=== PATIENT | female | born 1950 ===

== ENCOUNTER 2020-08-30 02:00 | Inpatient (IN) ==
[2020-08-30] MEDS ORDERED: NICOTINE 21 MG/24 HR PATCH TRANSDERM PRN (04:08)
[2020-08-30] MEDS ORDERED: hydrALAZINE 20 MG/1 ML VIAL IV PRN (04:08)
[2020-08-30] MEDS ORDERED: diphenhydrAMINE CAP 25 MG CAPSULE PO PRN (04:08)
[2020-08-30] MEDS ORDERED: GLUCAGON 1 MG VIAL IM PRN (04:08)
[2020-08-30] MEDS ORDERED: DEXTROSE 50% 25 GM/50 ML VIAL IV PRN (04:08)
[2020-08-30] MEDS ORDERED: ACETAMINOPHEN 325 MG TABLET PO PRN (04:08)
[2020-08-30] MEDS ORDERED: MORPHINE 4 MG/1 ML VIAL IV PRN (04:08)
[2020-08-30] MEDS ORDERED: ONDANSETRON 4 MG/2 ML VIAL IV PRN (04:08)
[2020-08-30 06:36] LABS: Basophils % 0.2 % (0.0-0.8); Hematocrit 34.6 VOL% (35.7-47.0); Hemoglobin 11.5 GM/DL (12.0-16.0); Immature Granulocytes % 0.4 %; Immature Granulocytes Absolute 0.02 #; Lymphocytes # 1.4 10*3/uL (1.4-4.0); Lymphocytes % 25.7 % (21.3-54.2); Mean Corpuscular HGB Conc 33.2 GM/DL (32-36); Mean Corpuscular Volume 89.6 FL (87-102); Mean Platelet Volume 9.8 FL (9.6-12.0); Monocytes % 7.2 % (1.7-12.7); Neutrophils % 66.5 % (38.7-73.9); Platelet Count 278 T/CUMM (130-400); Red Blood Count 3.86 MC/CUMM (3.8-5.5); Red Cell Distribution Width 13.5 % (9.3-17.3); White Blood Count 5.5 T/CUMM (4-12)
[2020-08-30 07:01] LABS: Albumin 2.9 G/DL (3.4-5.0); Bilirubin,Total 0.6 MG/DL (0.2-1.0); Calcium 8.5 MG/DL (8.5-10.1); Osmolality,Calculated 275.5 MOS/KG (273-304); Risk Ratio 4.77; Thyroid Stimulating Hormone 2.07 uIU/ml (0.358-3.74); Total Protein 6.8 G/DL (6.4-8.3); VLDL CHOLESTEROL 26.4 MG/DL
[2020-08-30 07:17] LABS: Band Neutrophils 10 % (0-10); Hypochromasia 1+; Lymphocytes 16 % (20-55); Nucleated Red Blood Cells 1 (0-5); Segmented Neutrophils 66 % (50-85); Total Cells Counted 100
[2020-08-30 07:19] LABS: Microcytosis Slight; Platelet Estimate Normal
[2020-08-30 09:35] LABS: Ferritin 236.8 ng/ml (8-252)
[2020-08-30 09:49] LABS: Alanine Aminotransferase 16 U/L (13-56); Albumin 3.1 G/DL (3.4-5.0); Alkaline Phosphatase 53 U/L (45-117); Aspartate Amino Transferase 21 U/L (0-37); Bilirubin,Total < 0.39 MG/DL (0.2-1.0); Blood Urea Nitrogen 13 MG/DL (7-18); Calcium 8.9 MG/DL (8.5-10.1); Estimated Glom Filtration Rate 61 ML/MIN; Glucose 84 MG/DL (74-106); Osmolality,Calculated 273.7 MOS/KG (273-304); Total Protein 7.8 G/DL (6.4-8.3)
[2020-08-30] MEDS ORDERED: ENOXAPARIN 80 MG/0.8 ML SYRINGE SUBCUT SCH (10:00)
[2020-08-30] MEDS: FAMOTIDINE 20 MG TABLET PO SCH ×2 (11:24→20:54)
[2020-08-30] MEDS: ROSUVASTATIN 10 MG TABLET PO SCH (11:24)
[2020-08-30] MEDS: guaiFENesin/DM ER 600-30 MG TABLET PO PRN (11:24)
[2020-08-30] MEDS: OLMESARTAN 20 MG TABLET PO SCH (11:24)
[2020-08-30] MEDS: ASCORBIC ACID 500 MG TABLET PO SCH ×2 (11:24→20:54)
[2020-08-30] MEDS: CHOLECALCIFEROL 1,000 UNIT TABLET PO SCH (11:24)
[2020-08-30] MEDS: ISOSORBIDE MONONITRATE 30 MG TABLET PO SCH (11:25)
[2020-08-30] MEDS: CETIRIZINE 10 MG TABLET PO SCH (11:25)
[2020-08-30] MEDS: ASPIRIN EC 81 MG TABLET PO SCH (11:25)
[2020-08-30] MEDS: METOPROLOL TARTRATE 100 MG TABLET PO SCH ×2 (11:25→20:54)
[2020-08-30] MEDS: ZINC GLUCONATE 50 MG TABLET PO SCH (11:25)
[2020-08-30] MEDS ORDERED: POTASSIUM CHLORIDE 20 MEQ TABLET PO ONE (12:49)
[2020-08-30] MEDS ORDERED: AZITHROMYCIN INJ 500 MG in SODIUM CHLORIDE 0.9% 250 ML IV ONE (13:54)
[2020-08-30] MEDS: DEXAMETHASONE 4 MG/1 ML VIAL IV SCH (14:19)
[2020-08-30] MEDS ORDERED: REMDESIVIR 200 MG in SODIUM CHLORIDE 0.9% 210 ML IV ONE (16:00)
[2020-08-30] MEDS ORDERED: SODIUM CHLORIDE 0.9% 1,000 ML IV PRN (18:31)
[2020-08-31 05:13] LABS: Basophils % 0.2 % (0.0-0.8); Hematocrit 33.4 VOL% (35.7-47.0); Hemoglobin 10.8 GM/DL (12.0-16.0); Immature Granulocytes % 0.3 %; Immature Granulocytes Absolute 0.02 #; Lymphocytes # 1.3 10*3/uL (1.4-4.0); Lymphocytes % 21.3 % (21.3-54.2); Mean Corpuscular HGB Conc 32.3 GM/DL (32-36); Mean Corpuscular Volume 91.3 FL (87-102); Mean Platelet Volume 9.8 FL (9.6-12.0); Monocytes % 4.6 % (1.7-12.7); Neutrophils % 73.6 % (38.7-73.9); Platelet Count 307 T/CUMM (130-400); Red Blood Count 3.66 MC/CUMM (3.8-5.5); Red Cell Distribution Width 13.5 % (9.3-17.3); White Blood Count 5.9 T/CUMM (4-12)
[2020-08-31 05:44] LABS: Band Neutrophils 6 % (0-10); Eosinophils 1 % (0-10); Lymphocytes 15 % (20-55); Platelet Estimate Normal; Segmented Neutrophils 75 % (50-85); Total Cells Counted 100
[2020-08-31 06:00] LABS: Albumin 2.7 G/DL (3.4-5.0); Bilirubin,Total 0.8 MG/DL (0.2-1.0); Calcium 9.2 MG/DL (8.5-10.1); Ferritin 235.9 ng/ml (8-252); Osmolality,Calculated 278.5 MOS/KG (273-304); Total Protein 7.3 G/DL (6.4-8.3)
[2020-08-31 06:36] LABS: Sedimentation Rate-Westergren 99 MM/HR (0-30)
[2020-08-31] MEDS: ROSUVASTATIN 10 MG TABLET PO SCH (08:40)
[2020-08-31] MEDS: ASPIRIN EC 81 MG TABLET PO SCH (08:40)
[2020-08-31] MEDS: CHOLECALCIFEROL 1,000 UNIT TABLET PO SCH (08:40)
[2020-08-31] MEDS: OLMESARTAN 20 MG TABLET PO SCH (08:40)
[2020-08-31] MEDS: ENOXAPARIN 40 MG/0.4 ML SYRINGE SUBCUT SCH ×2 (08:40→20:57)
[2020-08-31] MEDS: METOPROLOL TARTRATE 100 MG TABLET PO SCH ×2 (08:41→20:57)
[2020-08-31] MEDS: ISOSORBIDE MONONITRATE 30 MG TABLET PO SCH (08:41)
[2020-08-31] MEDS: FAMOTIDINE 20 MG TABLET PO SCH ×2 (08:41→20:57)
[2020-08-31] MEDS: ZINC GLUCONATE 50 MG TABLET PO SCH (08:41)
[2020-08-31] MEDS: CETIRIZINE 10 MG TABLET PO SCH (08:41)
[2020-08-31] MEDS: ASCORBIC ACID 500 MG TABLET PO SCH ×2 (08:41→20:57)
[2020-08-31] MEDS: AZITHROMYCIN 250 MG TABLET PO SCH (08:42)
[2020-08-31] MEDS: DEXAMETHASONE 4 MG/1 ML VIAL IV SCH (08:42)
[2020-08-31] MEDS: REMDESIVIR 100 MG in SODIUM CHLORIDE 0.9% 100 ML IV SCH (09:53)
[2020-09-01 05:58] LABS: Bilirubin,Urine Negative (Negative); Blood, Urine Negative (Negative); Glucose,Urine (UA) Negative (Negative); Ketones,Urine Negative (Negative); Mucus,Urine Occasional /LPF (Occasional); Nitrite,Urine Negative (Negative); Protein,Urine Negative; Squamous Epithelial Cell,Urine Occasional /HPF (0-10); Urine Appearance CLEAR (Clear); Urine Color Straw (Yellow); Urine Specific Gravity 1.011 (1.001-1.035); Urine Urobilinogen < 2.0 EU/DL (0.2-1.0); WBC,Urine <1 /HPF (0-6)
[2020-09-01] MEDS: OLMESARTAN 20 MG TABLET PO SCH (09:02)
[2020-09-01] MEDS: ASPIRIN EC 81 MG TABLET PO SCH (09:02)
[2020-09-01] MEDS: AZITHROMYCIN 250 MG TABLET PO SCH (09:02)
[2020-09-01] MEDS: CHOLECALCIFEROL 1,000 UNIT TABLET PO SCH (09:02)
[2020-09-01] MEDS: FAMOTIDINE 20 MG TABLET PO SCH ×2 (09:03→20:31)
[2020-09-01] MEDS: ASCORBIC ACID 500 MG TABLET PO SCH ×2 (09:03→20:31)
[2020-09-01] MEDS: ROSUVASTATIN 10 MG TABLET PO SCH (09:03)
[2020-09-01] MEDS: ISOSORBIDE MONONITRATE 30 MG TABLET PO SCH (09:03)
[2020-09-01] MEDS: METOPROLOL TARTRATE 100 MG TABLET PO SCH ×2 (09:03→20:31)
[2020-09-01] MEDS: DEXAMETHASONE 4 MG/1 ML VIAL IV SCH (09:04)
[2020-09-01] MEDS: ENOXAPARIN 40 MG/0.4 ML SYRINGE SUBCUT SCH ×2 (09:04→20:31)
[2020-09-01 09:59] LABS: Albumin 3.1 G/DL (3.4-5.0); Bilirubin,Total 0.4 MG/DL (0.2-1.0); Calcium 9.5 MG/DL (8.5-10.1); Osmolality,Calculated 279.5 MOS/KG (273-304); Total Protein 8.1 G/DL (6.4-8.3)
[2020-09-01] MEDS: CETIRIZINE 10 MG TABLET PO SCH (11:54)
[2020-09-01] MEDS: ZINC GLUCONATE 50 MG TABLET PO SCH (11:54)
[2020-09-01] MEDS: REMDESIVIR 100 MG in SODIUM CHLORIDE 0.9% 100 ML IV SCH (11:54)
[2020-09-02 06:13] LABS: Basophils % 0.1 % (0.0-0.8); Hematocrit 35.8 VOL% (35.7-47.0); Hemoglobin 11.9 GM/DL (12.0-16.0); Immature Granulocytes % 1.1 %; Immature Granulocytes Absolute 0.08 #; Lymphocytes # 1.4 10*3/uL (1.4-4.0); Lymphocytes % 19.3 % (21.3-54.2); Mean Corpuscular HGB Conc 33.2 GM/DL (32-36); Mean Corpuscular Volume 89.3 FL (87-102); Mean Platelet Volume 9.6 FL (9.6-12.0); Monocytes % 7.3 % (1.7-12.7); NRBC # 0.04 10*3/uL; Neutrophils % 72.2 % (38.7-73.9); Platelet Count 406 T/CUMM (130-400); Red Blood Count 4.01 MC/CUMM (3.8-5.5); Red Cell Distribution Width 13.2 % (9.3-17.3); White Blood Count 7.3 T/CUMM (4-12)
[2020-09-02 06:39] LABS: Albumin 2.8 G/DL (3.4-5.0); Bilirubin,Total 0.4 MG/DL (0.2-1.0); Calcium 9.7 MG/DL (8.5-10.1); Osmolality,Calculated 280.4 MOS/KG (273-304); Total Protein 7.7 G/DL (6.4-8.3)
[2020-09-02 06:55] LABS: Hypochromasia 1+; Microcytosis Slight; Platelet Estimate Increased
[2020-09-02] MEDS: DEXAMETHASONE 4 MG/1 ML VIAL IV SCH (08:15)
[2020-09-02] MEDS: ENOXAPARIN 40 MG/0.4 ML SYRINGE SUBCUT SCH ×2 (08:15→20:36)
[2020-09-02] MEDS: CHOLECALCIFEROL 1,000 UNIT TABLET PO SCH (08:16)
[2020-09-02] MEDS: ISOSORBIDE MONONITRATE 30 MG TABLET PO SCH (08:17)
[2020-09-02] MEDS: AZITHROMYCIN 250 MG TABLET PO SCH (08:17)
[2020-09-02] MEDS: ZINC GLUCONATE 50 MG TABLET PO SCH (08:17)
[2020-09-02] MEDS: ASPIRIN EC 81 MG TABLET PO SCH (08:17)
[2020-09-02] MEDS: METOPROLOL TARTRATE 100 MG TABLET PO SCH ×2 (08:17→20:36)
[2020-09-02] MEDS: OLMESARTAN 20 MG TABLET PO SCH (08:17)
[2020-09-02] MEDS: CETIRIZINE 10 MG TABLET PO SCH (08:17)
[2020-09-02] MEDS: FAMOTIDINE 20 MG TABLET PO SCH ×2 (08:17→20:36)
[2020-09-02] MEDS: ASCORBIC ACID 500 MG TABLET PO SCH ×2 (08:17→20:36)
[2020-09-02] MEDS: ROSUVASTATIN 10 MG TABLET PO SCH (08:18)
[2020-09-02] MEDS: REMDESIVIR 100 MG in SODIUM CHLORIDE 0.9% 100 ML IV SCH (10:21)
[2020-09-03 06:03] LABS: Basophils % 0.3 % (0.0-0.8); Hemoglobin 13.4 GM/DL (12.0-16.0); Immature Granulocytes % 1.5 %; Immature Granulocytes Absolute 0.09 #; Lymphocytes # 1.6 10*3/uL (1.4-4.0); Lymphocytes % 26.9 % (21.3-54.2); Mean Corpuscular HGB Conc 33.5 GM/DL (32-36); Mean Corpuscular Volume 89.3 FL (87-102); Mean Platelet Volume 9.9 FL (9.6-12.0); Monocytes % 7.5 % (1.7-12.7); NRBC # 0.03 10*3/uL; Neutrophils % 63.8 % (38.7-73.9); Platelet Count 449 T/CUMM (130-400); Red Blood Count 4.48 MC/CUMM (3.8-5.5); Red Cell Distribution Width 13.2 % (9.3-17.3); White Blood Count 5.9 T/CUMM (4-12)
[2020-09-03 06:38] LABS: Atypical Lymphocytes Few; Band Neutrophils 2 % (0-10); Hypochromasia 1+; Lymphocytes 24 % (20-55); Microcytosis 1+; Nucleated Red Blood Cells 1 (0-5); Platelet Estimate Adequate; Segmented Neutrophils 64 % (50-85); Total Cells Counted 100
[2020-09-03] MEDS: REMDESIVIR 100 MG in SODIUM CHLORIDE 0.9% 100 ML IV SCH (10:10)
[2020-09-03] MEDS: guaiFENesin/DM ER 600-30 MG TABLET PO PRN (10:16)
[2020-09-03] MEDS: ROSUVASTATIN 10 MG TABLET PO SCH (10:16)
[2020-09-03] MEDS: CHOLECALCIFEROL 1,000 UNIT TABLET PO SCH (10:16)
[2020-09-03] MEDS: ISOSORBIDE MONONITRATE 30 MG TABLET PO SCH (10:17)
[2020-09-03] MEDS: ASPIRIN EC 81 MG TABLET PO SCH (10:17)
[2020-09-03] MEDS: ZINC GLUCONATE 50 MG TABLET PO SCH (10:17)
[2020-09-03] MEDS: AZITHROMYCIN 250 MG TABLET PO SCH (10:17)
[2020-09-03] MEDS: ASCORBIC ACID 500 MG TABLET PO SCH (10:17)
[2020-09-03] MEDS: FAMOTIDINE 20 MG TABLET PO SCH (10:17)
[2020-09-03] MEDS: OLMESARTAN 20 MG TABLET PO SCH (10:18)
[2020-09-03] MEDS: CETIRIZINE 10 MG TABLET PO SCH (10:18)
[2020-09-03] MEDS: DEXAMETHASONE 4 MG/1 ML VIAL IV SCH (10:18)
[2020-09-03] MEDS: METOPROLOL TARTRATE 100 MG TABLET PO SCH (10:19)
[2020-09-03] MEDS: ENOXAPARIN 40 MG/0.4 ML SYRINGE SUBCUT SCH (10:19)
[2020-09-03 16:24] VITALS: BP 112/63
== END 2020-09-03 16:50 | disposition home or self-care (01) | DRG 177 ==
LOC: N.2E → SUATTDRO 03:44
PROVIDERS: ADMIT Internal Medicine; ATTEND Internal Medicine